=== PATIENT | male | born 1945 | race Caucasian/White ===

== ENCOUNTER 2021-07-12 16:18 | Emergency (ER) | payer MEDICARE ==
[~2021-07-12] VITALS: Ht 167.6 cm; Wt 97.5 kg
[~2021-07-12 16:18] MED LIST: ACET-8386 PO; ALPR0.5T2 PO; AMLO10TA PO; AMOX500C25 PO; ASPI-1822 PO; ATEN50TA8 PO; BACL10TA4 PO; BACTO TP; BUPR200T1 PO; CAPS0.026 TP; CEPH500C16 PO; CLON0.1T46 TD; FLUO-387 PO; GLIP5TAB14 PO; HYDR-3639 PO; LIP80 PO; LISI40TA14 PO; MELO15TA11 PO; METF1000 PO; METO-485 PO; METR500T1 PO; NAPR-54 PO; OMEP-124 PO; PRAZ5CAP PO; SILD20TA PO; TAMS0.4C96 PO; TRAM50TA1 PO; TRAZ-343 PO
[2021-07-12] MEDS ORDERED: ONDANSETRON 4 MG/2 ML VIAL IVP ONE (16:25)
[2021-07-12] MEDS ORDERED: KETOROLAC 30 MG/ML VIAL IVP ONE (16:25)
[2021-07-12] MEDS ORDERED: NACL 0.9% 1,000 ML IV SCH (16:25)
[2021-07-12 16:54] VITALS: BP 173/105
[2021-07-12 16:54] LABS: BASOPHILS % (AUTO) 0.2 % (0.0-2.0); EOSINOPHILS % (AUTO) 0.6 % (0.0-4.0); HEMATOCRIT 46.4 % (36-52); LYMPHOCYTES # (AUTO) 1.3 K/uL (2.0-11.5); LYMPHOCYTES % (AUTO) 17.1 % (20.5-51.1); MEAN CORPUSCULAR HEMOGLOBIN 31 pg (27-31); MEAN CORPUSCULAR HGB CONC 35 g/dL (33-37); MEAN CORPUSCULAR VOLUME 89.9 fL (80-94); MONOCYTES # (AUTO) 0.3 K/uL (0.8-1.0); MONOCYTES % (AUTO) 3.8 % (1.7-9.3); NEUTROPHILS # (AUTO) 5.8 K/uL (1.8-7.7); NEUTROPHILS % (AUTO) 78.3 % (42.2-75.2); PLATELET COUNT (AUTO) 213 K/uL (140-450); RED BLOOD CELL COUNT(AUTO) 5.16 MIL/uL (4.20-6.10); WHITE BLOOD COUNT (AUTO) 7.4 K/uL (4.8-10.8)
[2021-07-12 17:07] LABS: ANION GAP 16.4 (8-16); ASPARTATE AMINOTRANSFERASE 25 U/L (15-37); CARBON DIOXIDE 26.2 mmol/L (21-32); CHLORIDE 101 mmol/L (98-107); CREATININE 0.9 mg/dL (0.6-1.3); GLUCOSE 248 mg/dL (74-106); LIPASE 83 U/L (73-393); POTASSIUM 3.6 mmol/L (3.5-5.1); SODIUM SERUM 140 mmol/L (136-145); TOTAL BILIRUBIN 4.3 mg/dL (0.0-1.0); UREA NITROGEN, BLOOD 13 mg/dL (7-18)
[2021-07-12] MEDS ORDERED: ENALAPRILAT 2.5 MG/2 ML VIAL IVP ONE (17:10)
[2021-07-12] MEDS ORDERED: ONDA8TAB87 PO (18:06)
[2021-07-12] MEDS ORDERED: IBUP-2213 PO (18:06)
[2021-07-12] MEDS ORDERED: ONDANSETRON 4 MG ODT ONE (18:43)
[2021-07-12] MEDS ORDERED: ONDANSETRON 4 MG ODT PO ONE (18:45)
[2021-07-12 19:20] VITALS: BP 183/117
[2021-07-12] MEDS ORDERED: METOCLOPRAMIDE 10 MG/2 ML INJ VIAL IVP ONE (19:45)
== END 2021-07-12 20:35 | disposition home or self-care (01) ==
LOC: MED 16:18
DX: R11.2 Nausea with vomiting, unspecified (principal); Z20.822 Contact with and (suspected) exposure to COVID-19; E11.9 Type 2 diabetes mellitus without complications; I10 Essential (primary) hypertension; Z90.49 Acquired absence of other specified parts of digestive tract; Z98.890 Other specified postprocedural states; Z79.84 Long term (current) use of oral hypoglycemic drugs; Z88.5 Allergy status to narcotic agent; Z79.899 Other long term (current) drug therapy
CPT/HCPCS: 36415; 80053; 83690; 85025; 87426; 96361; 96374; 96375; 99284; J1885; J2405; J2765; J3490; J7030; Q0162

== ENCOUNTER 2022-02-17 13:05 | Emergency (ER) | payer MEDICARE ==
[~2022-02-17] VITALS: Ht 167.6 cm; Wt 87.1 kg
[~2022-02-17 13:05] MED LIST changes: +IBUP-2213 PO; +METF-1274 PO; -METF1000 PO; +ONDA8TAB87 PO
--- NOTE | 2022-02-17 13:15 | NUR ---
PT TAKEN TO ER BED 12 VIA W/C FOR BEDSIDE TRIAGE.
[2022-02-17 13:26] VITALS: BP 86/53
--- NOTE | 2022-02-17 13:29 | NUR ---
76 Y/O MALE BIB , SENT TO THE ER FOR DIZZINESS. AT 1200, PT NOTED GENERALIZED WEAKNESS, BP WAS LOW AND PLACED ON [place]. LYNN CATHETER IN PLACE. DENIED ANY PAIN AT THIS TIME. RESPIRATIONS EVEN AND UNLABORED. DENIED ANY FEVERS AT HOME ALLERGY: CODEINE PMH: HTN, HDL, DM
[2022-02-17] MEDS ORDERED: NACL 0.9% 2,000 ML IV SCH (13:35)
--- NOTE | 2022-02-17 13:40 | NUR ---
DR TAVERAS AT BEDSIDE EVALUATING PT
--- NOTE | 2022-02-17 13:47 | NUR ---
RAD AT BEDSIDE
[2022-02-17 13:54] LABS: BASOPHILS # (AUTO) 0.1 K/uL (0.00-0.22); BASOPHILS % (AUTO) 0.9 % (0.0-2.0); EOSINOPHILS # (AUTO) 0.3 K/uL (0-0.4); EOSINOPHILS % (AUTO) 2.9 % (0.0-4.0); HEMATOCRIT 42.2 % (36-52); HEMOGLOBIN 14.3 g/dL (12.0-18.0); LYMPHOCYTES # (AUTO) 1.8 K/uL (2.0-11.5); LYMPHOCYTES % (AUTO) 19.9 % (20.5-51.1); MEAN CORPUSCULAR HEMOGLOBIN 29 pg (27-31); MEAN CORPUSCULAR HGB CONC 34 g/dL (33-37); MEAN CORPUSCULAR VOLUME 85.1 fL (80-94); MONOCYTES # (AUTO) 0.5 K/uL (0.8-1.0); MONOCYTES % (AUTO) 5.8 % (1.7-9.3); NEUTROPHILS # (AUTO) 6.4 K/uL (1.8-7.7); NEUTROPHILS % (AUTO) 70.5 % (42.2-75.2); PLATELET COUNT (AUTO) 245 K/uL (140-450); RED BLOOD CELL COUNT(AUTO) 4.96 MIL/uL (4.20-6.10); RED CELL DISTRIBUTION WIDTH 14.5 % (11.6-13.7); WHITE BLOOD COUNT (AUTO) 9.1 K/uL (4.8-10.8)
[2022-02-17 14:17] LABS: PROTHROMBIN TIME 10.3 secs (10.8-13.4)
[2022-02-17 14:26] LABS: ALBUMIN 3.3 g/dL (3.4-5.0); ANION GAP 14.1 (8-16); ASPARTATE AMINOTRANSFERASE 9 U/L (15-37); CARBON DIOXIDE 26.9 mmol/L (21-32); CHLORIDE 98 mmol/L (98-107); CREATININE 1.5 mg/dL (0.6-1.3); SODIUM SERUM 135 mmol/L (136-145); TOTAL BILIRUBIN 2.8 mg/dL (0.0-1.0); UREA NITROGEN, BLOOD 19 mg/dL (7-18)
[2022-02-17 14:37] LABS: GLUCOSE 417 mg/dL (74-106)
[2022-02-17] MEDS ORDERED: cefTRIAXone 1,000 MG VIAL ONE (15:25)
[2022-02-17] MEDS ORDERED: NACL 0.9% 1,000 ML IV ONE (16:00)
[2022-02-17 16:30] LABS: APPEARANCE,URINE SL CLOUDY (CLEAR); BILIRUBIN,URINE NEGATIVE (NEGATIVE); BLOOD, URINE 2+ (NEGATIVE); COLOR,URINE YELLOW (YELLOW); LEUKOCYTE ESTERASE ,URINE TRACE (NEGATIVE); NITRITE, URINE NEGATIVE (NEGATIVE); UGLUCOSE 3+ (NEGATIVE)
[2022-02-17 17:10] LABS: RBC,URINE 20-50 /HPF (0-5)
[2022-02-17 17:11] LABS: TRICHOMONAS,URINE None Seen /HPF (None Seen); YEAST,URINE None Seen /HPF (None Seen)
[2022-02-17] MEDS ORDERED: KETOROLAC 30 MG/ML VIAL IVP ONE (17:55)
--- NOTE | 2022-02-17 19:18 | NUR ---
Pt report given to STACEY VASQUES. Transfer of care at this time.
--- NOTE | 2022-02-17 19:38 | NUR ---
PT APPEARS TO BE RESTING, EQUAL RISE AND FALL OF CHEST WALL. OPENS EYES TO SOUND. ALL NEEDS MET AT THIS TIME.
--- NOTE | 2022-02-17 20:00 | NUR ---
SPOKE TO OF PT, AZAM. PT GAVE PERMISSION TO UPDATE HIS .
--- NOTE | 2022-02-17 21:18 | NUR ---
LEG BAG EMPTIED AT 1200MLS. CLEAR YELLOW URINE OBSERVED.
--- NOTE | 2022-02-17 21:51 | NUR ---
PT GIVEN Lauren JOSHI.
--- NOTE | 2022-02-17 22:23 | NUR ---
pt states he wants to get some rest.
--- NOTE | 2022-02-17 23:49 | NUR ---
REPORT GIVEN TO CAPRICE GARCIA AT [facility] IN [place]. PT IS GOING TO ROOM 529. ETA FOR STOREROOM CLERK IS 0030
--- NOTE | 2022-02-17 23:52 | NUR ---
AZAM, OF PT UPDATED ON TRANSFER STATUS.
--- NOTE | 2022-02-18 00:29 | NUR ---
jerrell valdez picking up patient
--- NOTE | 2022-02-18 00:35 | NUR ---
leg bag emptied at 700cc, clear yellow urine.
[2022-02-18 00:50] VITALS: BP 141/83
--- NOTE | 2022-02-18 00:50 | NUR ---
Patient to be transferred to [facility]. Is being transferred due to INSURANCE. Receiving facility has accepting physician and available space. ER physician has signed transfer form. Patient or responsible democrat has agreed to transfer and signed form. Patient belongings inventoried and will be sent with patient. Copy of nursing notes, lab reports, EKG, Physicians Orders and X-rays to be sent with patient. Report called to CAPRICE GARCIA at receiving facility. [facility] ambulance service has been called for transfer. ETA is 0120.
== END 2022-02-18 00:50 | disposition short-term general hospital, planned readmission (82) ==
LOC: MED 13:05
DX: I95.9 Hypotension, unspecified (principal); Z20.822 Contact with and (suspected) exposure to COVID-19; R53.1 Weakness; E11.9 Type 2 diabetes mellitus without complications; I10 Essential (primary) hypertension; Z88.5 Allergy status to narcotic agent; Z79.4 Long term (current) use of insulin
CPT/HCPCS: 36415; 71045; 80053; 81001; 83605; 83880; 84484; 85025; 85610; 85730; 87040; 87086; 87426; 87804; 93005; 96361; 96365; 96375; 99285; J0696; J1885; J7030

== ENCOUNTER 2022-04-06 23:22 | Emergency (ER) | payer MEDICARE ==
[~2022-04-06] VITALS: Ht 167.6 cm; Wt 89.8 kg
[2022-04-06 23:25] VITALS: BP 154/88
--- NOTE | 2022-04-06 23:39 | NUR ---
76 Y/O MALE BIBS FROM HOME, C/O CATHETERIZATION PAIN. PT STATES IT CAME OUT AND HE TRIED TO PUT IT BACK IN. NOW HAS SEVERE PAIN AND IS UNABLE TO VOID. A/OX4, GCS-15; UNLABORED BREATHING, SPEAKING IN FULL SENTENCES; AMBULATORY W/O ASSISTANCE; DENIES COUGH, SOB, CP, OR FEVER. SKIN PINK/WARM/DRY.
[2022-04-06] MEDS ORDERED: KETOROLAC 60 MG/2 ML VIAL IM ONE ×2 (23:50)
--- NOTE | 2022-04-07 00:02 | NUR ---
PT'S LEG BAG REPLACED WITH NEW FOLYEY# 16 FR Gu catheter with 10 ml utilizing sterile technique. Immediate return of 400 ml ORANGE BLOODY urine noted. Bedside drainage bag placed below level of bladder. Urine sample collected and sent to lab. Pt tolerated procedure WELL.
--- NOTE | 2022-04-07 01:06 | NUR ---
ER MD AT BEDSIDE EXAMINING PT
[2022-04-07] MEDS ORDERED: IBUP-2213 PO (01:22)
[2022-04-07] MEDS ORDERED: CIPR500T4 PO (01:22)
[2022-04-07 01:46] VITALS: BP 140/82
--- NOTE | 2022-04-07 01:47 | NUR ---
Patient discharged with v/s stable. Written and verbal after care instructions given and explained. Patient alert, oriented and verbalized understanding of instructions. Ambulatory with steady gait. All questions addressed prior to discharge. ID band removed. Patient advised to follow up with PMD. Rx of CIPRO AND IBUPROFEN given. Patient educated on indication of medication including possible reaction and side effects. Opportunity to ask questions provided and answered. VSS, A/OX4, UNLABORED BREATHING, AMBULATORY, AND CALM DEMEANOR.
== END 2022-04-07 01:45 | disposition home or self-care (01) ==
LOC: MED 23:22
DX: T83.018A Breakdown (mechanical) of other urinary catheter, initial encounter (principal); N39.0 Urinary tract infection, site not specified; E11.9 Type 2 diabetes mellitus without complications; I10 Essential (primary) hypertension; Z79.899 Other long term (current) drug therapy; Z79.84 Long term (current) use of oral hypoglycemic drugs; Z79.82 Long term (current) use of aspirin; Z88.5 Allergy status to narcotic agent; Z85.46 Personal history of malignant neoplasm of prostate
CPT/HCPCS: 51702; 81002; 87086; 96372; 99284; J1885

== ENCOUNTER 2022-04-18 14:24 | Emergency (ER) | payer MEDICARE ==
[~2022-04-18] VITALS: Ht 167.6 cm; Wt 83.9 kg
[~2022-04-18 14:24] MED LIST changes: +CIPR500T4 PO
[2022-04-18 14:45] VITALS: BP 177/110
--- NOTE | 2022-04-18 15:12 | NUR ---
PT TO ROOM 8 . 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
--- NOTE | 2022-04-18 15:26 | NUR ---
76YR OLD MALE BIB EMS C/O FALL. PT IN [facility] TRANSFERED OVER TO [facility] BY EMS. PT STATES HIS R LEG WAS WEAK AND HIS LEG GAVE OUT AND FALL AND HIT HIS HEAD ON RIGHT SIDE. DENIES LOC. PAIN LEVEL 5/10 R LEG AND HEAD RIGHT SIDE. DENIES BLURRED VISION. DENIES CP OR SOB. PT IS HYPERTENSIVE , ER MD AWARE. PT A&OX4. ON BARREL CENTERER. RESP EVEN AND UNLABORED. NO DISTRESS NOTED. CODEINE HTN DM PROSTATE CA
[2022-04-18 15:42] LABS: BASOPHILS % (AUTO) 0.3 % (0.0-2.0); EOSINOPHILS # (AUTO) 0.3 K/uL (0-0.4); EOSINOPHILS % (AUTO) 4.1 % (0.0-4.0); HEMATOCRIT 37.8 % (36-52); HEMOGLOBIN 12.9 g/dL (12.0-18.0); LYMPHOCYTES # (AUTO) 2.4 K/uL (2.0-11.5); LYMPHOCYTES % (AUTO) 31.3 % (20.5-51.1); MEAN CORPUSCULAR HEMOGLOBIN 29 pg (27-31); MEAN CORPUSCULAR HGB CONC 34 g/dL (33-37); MEAN CORPUSCULAR VOLUME 85.7 fL (80-94); MONOCYTES # (AUTO) 0.6 K/uL (0.8-1.0); MONOCYTES % (AUTO) 7.4 % (1.7-9.3); NEUTROPHILS # (AUTO) 4.4 K/uL (1.8-7.7); NEUTROPHILS % (AUTO) 56.9 % (42.2-75.2); PLATELET COUNT (AUTO) 280 K/uL (140-450); RED BLOOD CELL COUNT(AUTO) 4.41 MIL/uL (4.20-6.10); RED CELL DISTRIBUTION WIDTH 15.2 % (11.6-13.7); WHITE BLOOD COUNT (AUTO) 7.7 K/uL (4.8-10.8)
--- NOTE | 2022-04-18 15:58 | NUR ---
PT TO CT
[2022-04-18 16:23] LABS: BILIRUBIN,URINE NEGATIVE (NEGATIVE); BLOOD, URINE 2+ (NEGATIVE); COLOR,URINE YELLOW (YELLOW); LEUKOCYTE ESTERASE ,URINE 1+ (NEGATIVE); NITRITE, URINE POSITIVE (NEGATIVE); UGLUCOSE 3+ (NEGATIVE)
[2022-04-18 16:28] LABS: APPEARANCE,URINE CLOUDY (CLEAR)
--- NOTE | 2022-04-18 17:03 | NUR ---
76/M BIBA FROM HOME. PER EMS PATIENT CALLED 911 REPORT NECK AND UPPER BACK PAIN S/P A GROUND LEVEL FALL, STATES HE LOST BALANCE. EMS PLACED PATIENT IN C-COLLAR DUE TO NECK PAIN COMPLAINT. ON SCENE PATIENTS BP 198/128, UPON ARRIVAL 177/110. PATIENT AOX4, ANSWERING QUESTIONS APPROPRIATELY.
--- NOTE | 2022-04-18 17:05 | NUR ---
lactic acid 2.7 dr bolden aware
[2022-04-18 17:10] LABS: ALBUMIN 2.9 g/dL (3.4-5.0); ANION GAP 16.8 (8-16); ASPARTATE AMINOTRANSFERASE 12 U/L (15-37); CARBON DIOXIDE 24.3 mmol/L (21-32); CHLORIDE 98 mmol/L (98-107); CREATININE 1.2 mg/dL (0.6-1.3); LIPASE 197 U/L (73-393); POTASSIUM 3.1 mmol/L (3.5-5.1); SODIUM SERUM 136 mmol/L (136-145); TOTAL BILIRUBIN 1.4 mg/dL (0.0-1.0); UREA NITROGEN, BLOOD 18 mg/dL (7-18)
[2022-04-18 17:12] LABS: GLUCOSE 495 mg/dL (74-106)
--- NOTE | 2022-04-18 17:15 | NUR ---
CRITICAL RESULT GLUC 495
--- NOTE | 2022-04-18 17:30 | NUR ---
PT RETURN FROM CT. PAIN LEVEL 3/10. PAIN IN NECK TO MID BACK. HEADACHE 3/10. PT IS HYPERTENSIVE. ER MD AWARE. RESP EVEN AND UNLABORED .
[2022-04-18 17:51] LABS: RBC,URINE TOO NUMEROUS TO COUN /HPF (0-5)
--- NOTE | 2022-04-18 18:05 | NUR ---
NEURO CONSULT BEDSIDE WITH PATIENT.
[2022-04-18] MEDS ORDERED: ASPIRIN 325 MG TAB PO ONE (18:15)
--- NOTE | 2022-04-18 18:25 | NUR ---
PATIENTS BLOOD PRESSURE 191/125, DR. BAEZA MADE AWARE.
--- NOTE | 2022-04-18 18:30 | NUR ---
PATIENT WILL BE ADMITTED OR TRANSFER OUT [facility]
--- NOTE | 2022-04-18 18:57 | NUR ---
C-COLLAR CLEARED BY DR ABARCA FOR REMOVAL. FAMILY BROUGHT FOOD FOR PT , PATIENT SITTING UP EATING
--- NOTE | 2022-04-18 19:13 | NUR ---
PATIENTS CURRENT BLOOD PRESSURE IS 181/139, DR. KLINE AWARE.
[2022-04-18] MEDS ORDERED: POTASSIUM CHLORIDE 10 MEQ TABER PO ONE (19:20)
--- NOTE | 2022-04-18 19:25 | NUR ---
COVID-19 swabs collected and sent to lab.
--- NOTE | 2022-04-18 19:27 | NUR ---
Patient refused to transfer to [facility], Dr. Sanchez notified.
--- NOTE | 2022-04-18 19:32 | NUR ---
Patient called and informed his family.
--- NOTE | 2022-04-18 19:36 | NUR ---
Dr. Sanchez examining patient.
[2022-04-18 20:00] VITALS: BP 181/139
--- NOTE | 2022-04-18 20:00 | NUR ---
Patient does not wish to proceed with medical care recommended by Dr. Sanchez. Patient given information related to possible complications, up to and including , which could occur as a result of leaving hospital at this time. Patient verbalizes understanding of risks involved leaving against medical advice. Patient has signed AMA form.
== END 2022-04-18 20:00 | disposition left against medical advice (07) ==
LOC: MED 14:24
DX: I65.01 Occlusion and stenosis of right vertebral artery (principal); Z20.822 Contact with and (suspected) exposure to COVID-19; M54.2 Cervicalgia; I10 Essential (primary) hypertension; E11.9 Type 2 diabetes mellitus without complications; Z79.4 Long term (current) use of insulin; Z79.899 Other long term (current) drug therapy; Z88.5 Allergy status to narcotic agent; Z85.46 Personal history of malignant neoplasm of prostate
CPT/HCPCS: 36415; 70450; 70496; 70498; 71045; 72125; 80053; 81001; 83605; 83690; 84484; 85025; 87040; 87086; 87426; 93005; 99285; Q0092; Q9967

== ENCOUNTER 2022-06-15 13:19 | Emergency (ER) | payer MEDICARE ==
[~2022-06-15] VITALS: Ht 172.7 cm; Wt 77.1 kg
[2022-06-15 13:22] VITALS: BP 103/68
[2022-06-15] MEDS ORDERED: NACL 0.9% 1,000 ML IV ONE (13:30)
--- NOTE | 2022-06-15 13:30 | NUR ---
ER physician at bedside assessing patient.
[2022-06-15 13:51] LABS: BASOPHILS % (AUTO) 0.6 % (0.0-2.0); EOSINOPHILS # (AUTO) 0.2 K/uL (0-0.4); EOSINOPHILS % (AUTO) 3.2 % (0.0-4.0); HEMATOCRIT 39.2 % (36-52); HEMOGLOBIN 13.4 g/dL (12.0-18.0); LYMPHOCYTES # (AUTO) 1.9 K/uL (2.0-11.5); LYMPHOCYTES % (AUTO) 26.6 % (20.5-51.1); MEAN CORPUSCULAR HEMOGLOBIN 30 pg (27-31); MEAN CORPUSCULAR HGB CONC 34 g/dL (33-37); MEAN CORPUSCULAR VOLUME 87.6 fL (80-94); MONOCYTES # (AUTO) 0.5 K/uL (0.8-1.0); MONOCYTES % (AUTO) 7.6 % (1.7-9.3); NEUTROPHILS # (AUTO) 4.3 K/uL (1.8-7.7); PLATELET COUNT (AUTO) 193 K/uL (140-450); RED BLOOD CELL COUNT(AUTO) 4.47 MIL/uL (4.20-6.10)
[2022-06-15] MEDS ORDERED: diphenhydrAMINE 50 MG/ML VIAL IVP ONE (14:25)
[2022-06-15] MEDS ORDERED: METOCLOPRAMIDE 10 MG/2 ML INJ VIAL IVP ONE (14:25)
--- NOTE | 2022-06-15 14:30 | NUR ---
Patient lying in bed, no c/o pain or s/s of discomfort, chest rise and fall symmetrical, patient is a/ox4.
[2022-06-15 14:31] LABS: ALBUMIN 3.3 g/dL (3.4-5.0); ANION GAP 14.9 (8-16); ASPARTATE AMINOTRANSFERASE 12 U/L (15-37); CARBON DIOXIDE 25.7 mmol/L (21-32); CHLORIDE 102 mmol/L (98-107); CREATININE 1.2 mg/dL (0.6-1.3); GLUCOSE 334 mg/dL (74-106); POTASSIUM 3.6 mmol/L (3.5-5.1); SODIUM SERUM 139 mmol/L (136-145); TOTAL BILIRUBIN 3.2 mg/dL (0.0-1.0); UREA NITROGEN, BLOOD 32 mg/dL (7-18)
--- NOTE | 2022-06-15 15:31 | NUR ---
Patient able to ambulate safely 20 feet. ER physician verbally informed of patient's BG result. ER physician verbalized understanding, no further questions.
[2022-06-15 16:13] VITALS: BP 128/89
--- NOTE | 2022-06-15 16:16 | NUR ---
Patient discharged with v/s stable. Written and verbal after care instructions given and explained. Patient verbalized understanding. Ambulatory with steady gait. All questions addressed prior to discharge. Advised to follow up with PMD.
== END 2022-06-15 16:16 | disposition home or self-care (01) ==
LOC: MED 13:19
DX: R51.9 Headache, unspecified (principal); I10 Essential (primary) hypertension; E11.9 Type 2 diabetes mellitus without complications; Z79.4 Long term (current) use of insulin; Z79.899 Other long term (current) drug therapy; Z85.46 Personal history of malignant neoplasm of prostate; Z88.5 Allergy status to narcotic agent; Z90.49 Acquired absence of other specified parts of digestive tract
CPT/HCPCS: 36415; 71045; 80053; 84484; 85025; 93005; 96361; 96374; 96375; 99285; J1200; J2765; Q0092